=== PATIENT | female | born 1995 | race Caucasian/White ===

== ENCOUNTER 2017-10-29 10:39 | Emergency (ER) | payer SELFPAY ==
[~2017-10-29] VITALS: Ht 165.1 cm; Wt 108.9 kg
--- NOTE | 2017-10-29 11:19 | ED GU-Female ---
General Chief Complaint: -Female Stated Complaint: POSS MISCARRIAGE Nursing Triage Note: ARRIVED VIA AMB TO ROOM 09. STATES SHE IS APPX 8 WEEKS GESTATION AND HAS BEEN PASSING BLOOD, TISSUE, AND BLOOD CLOTS STRATING LAST NIGHT ALONG WITH SOME ABD CRAMPING. Nursing Sepsis Screen: No Definite Risk Source: patient Exam Limitations: no limitations History of Present Illness Date Seen by Provider: Oct 29, 2017 Time Seen by Provider: 11:19 Initial Comments 22 yo female patient presents to the ED with c/o passing blood, tissue, and clots beginning last night. Patient also reports 3 week onset of lower abdominal cramping, but was told this was normal when the fetus was growing. Patient states she should be approximately 8 weeks gestation. She also states she stopped her control back in June and restarted the control in September. Did take a test at home prior to restarting her control. Timing/Duration: yesterday, getting worse Severity/Quality: cramping Location: suprapubic Radiation: none Activities at Onset: other (standing in the kitchen cooking supper) Prior Genitourinary Problems: none Sexual Munden History: less than 2 months ago, single partner Allergies and Home Medications Allergies Coded Allergies: No Known Drug Allergies (Unverified , 10/29/17) Home Medications Metronidazole 70 Gm Gel.w.appl, 70 GM VG UD, #1 Ref 0 1 applicatorful vaginally qhs x5d Prescribed by: ENID KINNEY on 10/29/17 1308 Constitutional: No chills, No diaphoresis, No dizziness, No fever, No malaise, No weakness Respiratory: no symptoms reported Cardiovascular: no symptoms reported Gastrointestinal: abdominal pain (suprapubic abdominal cramping), No constipation, No diarrhea, No melena, No nausea, No vomiting Genitourinary: see HPI, denies burning, denies dysuria, denies frequency, denies flank pain, denies hematuria, pain (suprapubic abdominal cramping), other (vaginal bleeding) : Yes Musculoskeletal: No back pain Skin: no symptoms reported Psychiatric/Neurological: No Symptoms Reported All Other Systemes Reviewed Negative Unless Noted: Yes (Negative excepted noted.) Past Ijyytdp-Mmywos-[id number] Hx Patient Social History Recent Foreign Travel: No Contact w/Someone Who Travel: No Recent Infectious Disease Expo: No Recent Hopitalizations: No Surgeries History of Surgeries: No Respiratory History of Respiratory Disorde: No Cardiovascular History of Cardiac Disorders: No Neurological History of Neurological Disord: No Reproductive System : Yes Hx : 1 Hx Para: 0 Hx Total # of Abortions (Spona: 0 Hx Reproductive Disorders: No Sexually Transmitted Disease: No HIV/AIDS: No Female Reproductive Disorders: Denies Genitourinary History of Genitourinary Disor: No Gastrointestinal History of Gastrointestinal Di: No Musculoskeletal History of Musculoskeletal Dis: No Endocrine History of Endocrine Disorders: No HEENT History of HEENT Disorders: No Cancer History of Cancer: No Psychosocial History of Psychiatric Problem: No Integumentary History of Skin or Integumenta: No Reviewed Nursing Assessment Reviewed/Agree w Nursing PMH: Yes Family Medical History Significant Family History: No Pertinent Family Hx Physical Exam Vital Signs Vital Sign - Last 12Hours 10/29/17 10:52 Temp 98.0 Pulse 91 Resp 18 B/P (MAP) 156/102 (120) Pulse Ox 100 Capillary Refill : Less Than 3 Seconds General Appearance: WD/WN, no apparent distress HEENT: PERRL/EOMI, pharynx normal Neck: supple, normal inspection Cardiovascular: normal peripheral pulses, regular rate, rhythm, no edema, no murmur Respiratory: lungs clear, normal breath sounds, no respiratory distress, no accessory muscle use Gastrointestinal: normal bowel sounds, non tender, soft, no organomegaly, No distended Pelvic: normal external exam, normal adnexa, no cerv. motion tender, no masses , No lesions, No mass, vaginal bleeding (dark blood noted in the vaginal vault without evidence of active bleeding.) Back: normal inspection, no CVA tenderness Extremities: no pedal edema, normal capillary refill Neurologic/Psychiatric: alert, oriented x 3, depressed affect Skin: normal color, warm/dry Progress/Results/Core Measures Suspected Sepsis Recent Fever Within 48 Hours: No Infection Criteria Present: None New/Unexplained Altered Menta: No Sepsis Screen: No Definite Risk Sepsis Diagnosis: SIRS Temperature:98.0 Pulse: 91 Respiratory Rate: 18 Laboratory Tests 10/29/17 11:24: White Blood Count 8.5 Blood Pressure 156 /102 Mean: 120 Laboratory Tests 10/29/17 11:24: Platelet Count 225 Results/Orders Lab Results Laboratory Tests Test 10/29/17 11:13 10/29/17 11:24 10/29/17 12:35 Range/Units Urine Color RED H Urine Clarity BLOODY H Urine pH 7 5-9 Urine Specific [place] 1.010 L 1.016-1.022 Urine Protein 2+ H NEGATIVE Urine Glucose (UA) NEGATIVE NEGATIVE Urine Ketones NEGATIVE NEGATIVE Urine Nitrite NEGATIVE NEGATIVE Urine Bilirubin NEGATIVE NEGATIVE Urine Urobilinogen NORMAL NORMAL MG/DL Urine Leukocyte Esterase 2+ H NEGATIVE Urine RBC (Auto) 5+ H NEGATIVE Urine RBC TNTC H /HPF Urine WBC 2-5 /HPF Urine Squamous Epithelial Cells 0-2 /HPF Urine Crystals NONE /LPF Urine Bacteria NEGATIVE /HPF Urine Casts NONE /LPF Urine Mucus NEGATIVE /LPF Urine Culture Indicated YES White Blood Count 8.5 4.3-11.0 10^3/uL Red Blood Count 4.87 4.35-5.85 10^6/uL Hemoglobin 15.1 11.5-16.0 G/DL Hematocrit 44 35-52 % Mean Corpuscular Volume 91 80-99 FL Mean Corpuscular Hemoglobin 31 25-34 PG Mean Corpuscular Hemoglobin Concent 34 32-36 G/DL Red Cell Distribution Width 13.3 10.0-14.5 % Platelet Count 225 130-400 10^3/uL Mean Platelet Volume 10.9 H 7.4-10.4 FL Neutrophils (%) (Auto) 69 42-75 % Lymphocytes (%) (Auto) 25 12-44 % Monocytes (%) (Auto) 5 0-12 % Eosinophils (%) (Auto) 0 0-10 % Basophils (%) (Auto) 0 0-10 % Neutrophils # (Auto) 5.9 1.8-7.8 X 10^3 Lymphocytes # (Auto) 2.2 1.0-4.0 X 10^3 Monocytes # (Auto) 0.4 0.0-1.0 X 10^3 Eosinophils # (Auto) 0.0 0.0-0.3 10^3/uL Basophils # (Auto) 0.0 0.0-0.1 10^3/uL Human Chorionic Gonadotropin, Quant 7558 H <5 MIU/ML Micro Results Microbiology 10/29/17 Genital Culture, Resulted Pending 10/29/17 Wet Prep - Final, Resulted My Orders Orders - ENID KINNEY Cbc With Automated Diff (10/29/17 11:11) Ua Culture If Indicated (10/29/17 11:11) Abo Rh Type (10/29/17 11:11) Us Ob Transvaginal [id number] (10/29/17 11:11) Urine Culture (10/29/17 11:13) Hcg,Quantitative (10/29/17 12:06) Wet Prep (10/29/17 12:41) Neisseria Gonorrhea Dna (10/29/17 12:41) Chlamydia Dna (10/29/17 12:41) Genital Culture (10/29/17 12:41) Vital Signs/I&O Vital Sign - Last 12Hours 10/29/17 10:52 Temp 98.0 Pulse 91 Resp 18 B/P (MAP) 156/102 (120) Pulse Ox 100 Capillary Refill : Less Than 3 Seconds Blood Pressure Mean: 120 Diagnostic Imaging Diagonstic Imaging: Ultrasound Plain Films/CT/US/NM/MRI: pelvis Comments US OB TRANSVAGINAL [id number] INDICATION: Vaginal bleeding. TECHNIQUE: Transvaginal sonography was performed. FINDINGS: The uterus measures 8.2 x 3.9 x 4.1 cm. The endometrium is significantly thickened and heterogeneous measuring up to 1.7 cm. No internal vascularity is present. No myometrial mass is identified. The ovaries were not visualized. No adnexal mass or free fluid is seen. IMPRESSION: Abnormally thickened and heterogeneous endometrium, perhaps containing blood products. No gestational sac is present. No adnexal mass or free fluid is seen. Dictated on workstation # [id number] Reviewed: Reviewed by Me (radiology report reviewed by me) Departure Communication (Admissions) Progress Notes All laboratory and diagnostic findings discussed with the patient. Patient reports having an appointment next with [facility] to establish care. Will have patient follow up this week with [facility] for repeat labs and to schedule an outpatient repeat ultrasound within the next 2 weeks. Patient to call for appointment time. Return precautions were discussed with the patient as described in the discharge instructions of this report. Patient verbalizes understanding and agrees with the treatment plan. Patient case discussed with Dr. Brown, he agrees with the plan of care. Impression Impression: Primary Impression: Threatened miscarriage in early Additional Impression: Bacterial vaginosis Disposition: HOME, SELF-CARE Condition: Improved Departure-Patient Inst. Decision time for Depature: 12:42 Referrals: NO,LOCAL PHYSICIAN (PCP) Primary Care Physician [facility] [place] Patient Instructions: Bacterial Vaginosis (DC), Threatened Miscarriage (DC) Add. Discharge Instructions: All discharge instructions reviewed with patient and/or family. Voiced understanding. Medications as instructed. Tylenol extra strength [id number] as directed for pain. Drink plenty of fluids. No intercourse, douching, or tampons until released by your [employer]. Follow-up with [facility] this week for recheck and repeat labs. They may also want to schedule a repeat ultrasound within the next 2 weeks. Call today for an appointment time. Return to the emergency department for increased pain, vaginal bleeding with greater than 2 pads per hour for greater than 2 hours, vaginal discharge, fever , decreased urination, inability to urinate, abdominal swelling, or any other concerns. Scripts Metronidazole (Metrogel-Vaginal) 70 Gm Gel.w.appl 70 GM VG UD, #1 TUBE 0 Refills 1 applicatorful vaginally qhs x5d Prov: ENID KINNEY 10/29/17 ENID KINNEY Oct 29, 2017 11:19
[2017-10-29 11:21] LABS: BILIRUBIN,URINE NEGATIVE (NEGATIVE); CLARITY,URINE BLOODY; COLOR,URINE RED; GLUCOSE, URINE (UA) NEGATIVE (NEGATIVE); KETONES,URINE NEGATIVE (NEGATIVE); LEUKOCYTE ESTERASE ,URINE 2+ (NEGATIVE); NITRITE,URINE NEGATIVE (NEGATIVE); PH,URINE 7 (5-9); PROTEIN,URINE 2+ (NEGATIVE); UROBILINOGEN,URINE NORMAL (NORMAL)
[2017-10-29 11:31] LABS: BASOPHILS % (AUTO) 0 % (0-10); EOSINOPHILS % (AUTO) 0 % (0-10); HEMATOCRIT 44 % (35-52); HEMOGLOBIN 15.1 G/DL (11.5-16.0); LYMPHOCYTES # (AUTO) 2.2 X 10^3 (1.0-4.0); LYMPHOCYTES % (AUTO) 25 % (12-44); MEAN CORPUSCULAR HEMOGLOBIN 31 PG (25-34); MEAN CORPUSCULAR HGB CONC 34 G/DL (32-36); MEAN CORPUSCULAR VOLUME 91 FL (80-99); MEAN PLATELET VOLUME 10.9 FL (7.4-10.4); MONOCYTES # (AUTO) 0.4 X 10^3 (0.0-1.0); MONOCYTES % (AUTO) 5 % (0-12); NEUTROPHILS # (AUTO) 5.9 X 10^3 (1.8-7.8); NEUTROPHILS % (AUTO) 69 % (42-75); PLATELET COUNT 225 10^3/uL (130-400); RED BLOOD COUNT 4.87 10^6/uL (4.35-5.85); RED CELL DISTRIBUTION WIDTH 13.3 % (10.0-14.5); WHITE BLOOD COUNT 8.5 10^3/uL (4.3-11.0)
[2017-10-29 11:36] LABS: BACTERIA,URINE NEGATIVE /HPF; RBC,URINE TNTC /HPF; SQUAMOUS EPITHELIAL CELL,UR 0-2 /HPF
--- NOTE | 2017-10-29 12:20 | Diagnostic Imaging Report ---
INDICATION: Vaginal bleeding. TECHNIQUE: Transvaginal sonography was performed. FINDINGS: The uterus measures 8.2 x 3.9 x 4.1 cm. The endometrium is significantly thickened and heterogeneous measuring up to 1.7 cm. No internal vascularity is present. No myometrial mass is identified. The ovaries were not visualized. No adnexal mass or free fluid is seen. IMPRESSION: Abnormally thickened and heterogeneous endometrium, perhaps containing blood products. No gestational sac is present. No adnexal mass or free fluid is seen. Dictated by: Dictated on workstation # [id number]
[2017-10-29] MEDS ORDERED: METR70GE16 VG (13:08)
[2017-10-29 13:23] VITALS: BP 156/102
== END 2017-10-29 13:23 | disposition home or self-care (01) ==
LOC: ER 10:42
DX: O20.0 Threatened abortion (principal); O23.519 Infections of cervix in pregnancy, unspecified trimester; Z3A.08 8 weeks gestation of pregnancy
CPT/HCPCS: 36415; 76817; 81000; 84702; 85025; 86900; 86901; 87070; 87088; 87186; 87210; 87491; 87591; 99284